=== PATIENT | male | born 1965 | race Caucasian/White ===

== ENCOUNTER 2018-12-29 18:13 | Emergency (ER) | payer OTHER ==
[~2018-12-29] VITALS: Ht 182.9 cm; Wt 85.7 kg
[2018-12-29] MEDS ORDERED: BACTRIM DS TAB1 EACH PO (19:22)
== END 2018-12-29 19:38 | disposition home or self-care (01) ==
LOC: ED 18:13
DX: L03.116 Cellulitis of left lower limb (principal); R23.3 Spontaneous ecchymoses; I10 Essential (primary) hypertension; F17.200 Nicotine dependence, unspecified, uncomplicated
CPT/HCPCS: 73630; 99283